=== PATIENT | male | born 1990 | race Caucasian/White ===

== ENCOUNTER 2017-11-07 05:43 | Emergency (ER) | payer OTHER ==
[2017-11-07 05:58] VITALS: BP 101/73; PULSE 81; TEMP 97.5; BMI 27.4
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
[2017-11-07] MEDS ORDERED: ALBUTEROL SO4 2.5/IPRATROPIUM 0.5 INH SOL 3 ML VIAL.NEB. NEB ONE ×2 (07:12→07:19)
== END 2017-11-07 08:12 | disposition home or self-care (01) ==
LOC: JER 05:43
PROC: 3E0F7GC Introduction of Other Therapeutic Substance into Respiratory Tract, Via Natural or Artificial Opening (ICD-10-PCS; principal; 2017-11-07)
DX: R06.02 Shortness of breath (principal)
CPT/HCPCS: 99282-25; J7620

== ENCOUNTER 2018-08-24 12:51 | Emergency (ER) | payer OTHER ==
[2018-08-24 13:08] VITALS: BP 104/70; BMI 29.0
[2018-08-24] MEDS ORDERED: IBUPROFEN 400 MG TABLET (FP) PO ONE ×2 (13:30→13:37)
--- NOTE | 2018-08-24 13:30 | PDOC ---
History of Present Illness - General Chief Complaint: Cold Symptoms Stated Complaint: FLU SYMPTOMS Time Seen by Provider: 08/24/18 13:13 History Source: Patient - History of Present Illness Initial Comments: 08/24/18 13:56 28-year-old male complaining of fever, nasal congestion, throat pain, body aches. Patient reports that he has been taking Mucinex and NyQuil with no improvement in symptoms. Denies past medical history. Past History - Past Medical History Allergies/Adverse Reactions: Allergies Allergy/AdvReac Type Severity Reaction Status Date / Time No Known Allergies Allergy Verified 08/24/18 13:02 Home Medications: Ambulatory Orders Ibuprofen 400 mg PO QID PRN #20 tablet 08/24/18 Oseltamivir Phosphate [Tamiflu -] 75 mg PO BID #10 capsule 08/24/18 Asthma: Yes COPD: No - Suicide/Smoking/Psychosocial Hx Smoking History: Never smoked Have you smoked in the past 12 months: No Information on smoking cessation initiated: No Hx Alcohol Use: No Drug/Substance Use Hx: No Substance Use Type: None Review of Systems - Review of Systems Able to Perform ROS?: Yes Is the patient limited Telugu proficient: No Constitutional: Yes: Fever HEENTM: Yes: Nose Congestion, Throat Pain Respiratory: Yes: Cough Cardiac (ROS): No: Symptoms Reported, See HPI, Chest Pain, Edema, Irregular Heart Rate, Lightheadedness, Palpitations, Syncope, Chest Tightness, Other ABD/GI: No: Symptoms Reported, See HPI, Abdominal Distended, Abd. Pain w/ defecation, Blood Streaked Bowels, Constipated, Diarrhea, Difficulty Swallowing , Nausea, Poor Appetite, Poor Fluid Intake, Rectal Bleeding, Vomiting, Indigestion, Abdominal cramping, Tarry Stools, Other : No: Symptoms Reported, See HPI, Burning, Dysuria, Discharge, Frequency, Flank Pain, Hematuria, Incontinence, Pain, Urgency, Testicular Mass, Testicular Swelling, Lesions, Testicular Pain, Other Musculoskeletal: No: Symptoms Reported, See HPI, Back Pain, Gout, Joint Pain, Joint Swelling, Muscle Pain, Muscle Weakness, Neck Pain, Joint Stiffness, Other Integumentary: No: Symptoms Reported, See HPI, Bruising, Change in Color, Change in Hair/Nails, Dryness, Erythema, Flushing, Lesions, Lumps, Pallor, Pruritus, Rash, Sweating, Other *Physical Exam - Vital Signs Last Vital Signs Temp Pulse Resp BP Pulse Ox 101.3 F H 115 H 19 104/70 97 08/24/18 12:59 08/24/18 12:59 08/24/18 12:59 08/24/18 12:59 08/24/18 12:59 - Physical Exam General Appearance: Yes: Appropriately Dressed HEENT: positive: Tonsillar Erythema Neck: positive: Lymphadenopathy (R), Lymphadenopathy (L) Respiratory/Chest: positive: Lungs Clear, Normal Breath Sounds Cardiovascular: positive: Regular Rate, Tachycardia Gastrointestinal/Abdominal: positive: Normal Bowel Sounds, Soft Musculoskeletal: positive: Normal Inspection Extremity: positive: Normal Capillary Refill, Normal Inspection, Normal Range of Motion Integumentary: positive: Normal Color, Dry, Warm Neurologic: positive: Fully Oriented, Alert, Normal Mood/Affect Progress Note - Progress Note Progress Note: influenza A : Rapid strep: negative influenza supportive care tolerating PO water ibuprofen *DC/Admit/Observation/Transfer Diagnosis at time of Disposition: Influenza A - Discharge Dispostion Disposition: HOME - Prescriptions Prescriptions: Ibuprofen 400 mg PO QID PRN #20 tablet PRN Reason: Pain Or Fever Oseltamivir Phosphate [Tamiflu -] 75 mg PO BID #10 capsule - Referrals Referrals: Jh Talley MD [Primary Care Provider] - Call tomorrow - Patient Instructions Printed Discharge Instructions: Influenza Additional Instructions: Drink plenty of fluids. 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 Return to the emergency room if symptoms worsen. - Post Discharge Activity Forms/Work/School Notes: Back to Work
[2018-08-24] MEDS ORDERED: OSELTAMIVIR PHOSPHATE 75 MG CAPSULE PO ONE (14:16)
[2018-08-24 14:42] VITALS: PULSE 99; TEMP 97.8
== END 2018-08-24 14:49 | disposition home or self-care (01) ==
LOC: JERFT 12:51
DX: J09.X2 Influenza due to identified novel influenza A virus with other respiratory manifestations (principal)
CPT/HCPCS: 87070; 87804; 87880; 99281-25

== ENCOUNTER 2019-04-26 10:38 | Emergency (ER) | payer OTHER ==
[2019-04-26 10:48] VITALS: BP 123/83; PULSE 90; TEMP 98.3; BMI 29.3
[2019-04-26] MEDS ORDERED: KETOROLAC TROMETHAMINE 60 MG/2 ML VIAL IM ONE (11:30)
[2019-04-26] MEDS ORDERED: KETOROLAC TROMETHAMINE 60 MG/2 ML VIAL ONE ×2 (11:31→11:33)
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
== END 2019-04-26 11:41 | disposition home or self-care (01) ==
LOC: JER 10:38
PROC: 3E0233Z Introduction of Anti-inflammatory into Muscle, Percutaneous Approach (ICD-10-PCS; principal; 2019-04-26)
DX: S46.912A Strain of unspecified muscle, fascia and tendon at shoulder and upper arm level, left arm, initial encounter (principal)
CPT/HCPCS: 73000-TC-LT-FY; 73030-TC-LT-FY; 99282-25